=== PATIENT | male | born 1930 | race Caucasian/White ===

== ENCOUNTER 2016-09-21 16:45 | Emergency (ER) | payer MEDICARE, OTHER ==
[~2016-09-21] VITALS: Ht 175.3 cm; Wt 79.5 kg
[2016-09-21 16:57] VITALS: BP 131/65; PULSE 67; RESP 15; O2SAT 99
[2016-09-21] MEDS ORDERED: ASPI81TA3 PO (17:05)
[2016-09-21] MEDS ORDERED: TAMS0.4C29 PO (17:05)
[2016-09-21] MEDS ORDERED: ASCO500C6 PO (17:05)
[2016-09-21] MEDS ORDERED: NITR0.4T SUBMUCO102 (17:05)
[2016-09-21] MEDS ORDERED: METO-272 PO (17:05)
[2016-09-21] MEDS ORDERED: OXYB5TAB PO (17:05)
[2016-09-21] MEDS ORDERED: LISI2.5T PO (17:05)
[2016-09-21] MEDS ORDERED: ATOR80TA77 PEG (17:05)
[2016-09-21] MEDS ORDERED: FINA5TAB9 PO (17:05)
[2016-09-21 17:16] LABS: BASOPHILS % (AUTO) 0.1 % (0-3); MONOCYTES % (AUTO) 10.7 % (4-12); Mean Corpuscular Hemoglobin 34.4 pg (27.0-35.0); Mean Corpuscular Volume 102.1 fL (81-100); NEUTROPHILS % (AUTO) 64.5 % (40-74); Platelet Count 156 bil/L (150-400)
--- NOTE | 2016-09-21 17:30 | ED.REPORT ---
HPI-Abd Pain M 40 and Over Date of Service Sep 21, 2016 ED Provider: Shyam Casey MD Pt is an 86 y/o male presenting to the ED c/o rectal bleeding onset tonight. The patient experienced acute onset of large amount of rectal bleeding this evening after a BM. There was no blood in the stool. A few hours later he soaked through the back of his pants with red blood. There is no currently active bleeding. The patient had a colonoscopy 5 years ago that was reportedly normal. Pt denies abdominal pain, vomiting, rectal pain, fever, chills, dizziness, lightheadedness, chest pain, SOB. He has no history of GI bleeding, is not anticoagulated and lives by himself. He takes 1 baby ASA each day. Nursing Notes Stated Complaint: BLEEDING FROM THE RECTUM Chief Complaint: Male Abdominal Pain Nursing Notes Reviewed: Yes Allergies: Coded Allergies: No Known Allergies (Unverified , 09/21/16) Scheduled Ascorbic Acid (Vitamin C) 500 Mg Capsule.er 500 MG PO DAILY Aspirin Chew (Aspirin Chew) 81 Mg Chew 81 MG PO DAILY Atorvastatin Calcium (Atorvastatin Calcium) 80 Mg Tablet 80 NG PEG DAILY Finasteride (Finasteride) 5 Mg Tablet 5 MG PO DAILY Lisinopril (Lisinopril) 2.5 Mg Tablet 2.5 MG PO DAILY Metoprolol Succinate ER (Metoprolol Succinate ER) 50 Mg Tab.er.24h 50 MG PO BID Nitroglycerin SL (Nitrostat) 0.4 Mg Tab.subl 1 TAB [id number] prn Oxybutynin Chloride ER (Oxybutynin Chloride ER) 5 Mg Tab.er.24 5 MG PO DAILY Tamsulosin ER (Tamsulosin ER) 0.4 Mg Cap.er.24h 0.4 MG PO DAILY General Time Seen by MD: 16:59 Chief Complaint Other (rectal bleeding) Hx Obtained From: Patient Arrived By: Walk-in Sudden in Onset?: Yes Sudden in Onset?: No Onset Occurred: 1 - 4 hours ago Symptom Duration: Intermittent Progression since Onset: Resolved Severity: Current: No pain currently Severity: Maximum: No pain Similar Sx Previous: No Past Medical History Past Medical History SC in 2000 Past Surgical History Colonoscopy Smoking History Unknown if Ever Smoker Ambulatory Status Independent Review of Systems Constitutional: Denies: Chills, Fever Respiratory: Denies: Non-productive cough, Shortness of breath Cardiovascular: Denies: Chest pain, Dyspnea on exertion GI: Reports: Hematochezia, Denies: Abdominal pain, Bloody/tarry stool, Diarrhea, Hematemesis, Melena, Nausea, Vomiting Complete sys rev & neg: except as marked. Neurologic: Denies: Dizziness, Lightheaded, Weakness Physical Exam Initial Vital Signs Vital Signs (First) Date Time Temp Pulse Resp B/P Pulse Ox O2 Delivery O2 Flow Rate FiO2 09/21/16 16:57 36.6 67 15 131/65 99 09/21/16 18:22 Room Air Initial VS: Reviewed, Vital signs normal Head / Eyes: Atraumatic, Normocephalic, PERRL ENT: Mucous membranes moist, Conjunctiva normal, No scleral icterus Neck: Supple, Full range of motion Extremities: Vascular intact, Neuro intact, No swelling Skin: Warm, Dry, No cyanosis Neurologic: Alert, Oriented, Nonfocal Psychiatric: Mood/affect normal, Behavior normal, Normal thought content General/Constitutional: Awake, Alert, No acute distress, Well appearing, Cooperative, Not toxic appearing Respiratory / Chest: Breath sounds NL, Breath sounds = bilat, No respiratory distress, No rales, No rhonchi, No wheezing Cardiovascular: Heart rate NL, Regular rhythm, Heart sounds NL, No gallop, No murmurs, No rubs, Cap refill not delayed, Peripheral circulation NL Abdomen: Atraumatic, Soft, Non-tender, No guarding, No rebound, No distention, No palpable mass Back: Full range of motion, Painless range of motion Rectum / Perineum: Atraumatic, No discharge, No fecal impaction, No fissures, No hemorrhoids, No lesions, No mass Brown stool with small blood streaks Small amount of blood Interpretation & Diagnostics Lab Results Interpretation Result Diagram: 09/21/16 1706 09/21/16 1706 Test 09/21/16 17:06 White Blood Count 7.7th/mm3 (3.8-10.1) Red Blood Count 4.30mil/mm3 (4.40-5.80) Hemoglobin 14.8g/dL (13.8-17.2) Hematocrit 43.9% (41.0-50.0) Mean Corpuscular Volume 102.1fL (81-100) Mean Corpuscular Hemoglobin 34.4pg (27.0-35.0) Mean Corpuscular Hemoglobin Concent 33.7% (32.0-37.0) Red Cell Distribution Width 12.8% (12.3-15.4) Platelet Count 156bil/L (150-400) Neutrophils (%) (Auto) 64.5% (40-74) Lymphocytes (%) (Auto) 22.3% (14-46) Monocytes (%) (Auto) 10.7% (4-12) Eosinophils (%) (Auto) 2.0% (0-5) Basophils (%) (Auto) 0.1% (0-3) Prothrombin Time 10.5sec (8.1-12.5) Prothromb Time International Ratio 0.98ratio Sodium Level 142mEq/L (134-144) Potassium Level 4.4mEq/L (3.5-5.2) Chloride Level 105mEq/L (97-108) Carbon Dioxide Level 24mmol/L (18-29) Blood Urea Nitrogen 14mg/dL (8-27) Creatinine 0.92mg/dL (0.76-1.27) Estimat Glomerular Filtration Rate 83mL/min (>59) Glucose Level 114mg/dL (60-99) Calcium Level 9.9mg/dL (8.5-10.1) Total Bilirubin 0.5mg/dL (0.0-1.2) Aspartate Amino Transf (AST/SGOT) 24U/L (0-50) Alanine Aminotransferase (ALT/SGPT) 20U/L (0-44) Alkaline Phosphatase 95U/L (25-160) Total Protein 7.5g/dL (6.4-8.4) Albumin 4.2g/dL (3.4-5.0) Hold Azar Top Tube Received (Received) Re-Eval/Medical Decision Med Decision/Clinical Course 86-year-old male with history of CAD on aspirin and not on blood thinners presenting with rectal bleeding earlier today. His vital signs are stable. His hemoglobin is stable at 14. His stool is guaiac positive though it is brown with small flecks of red blood. Discussed with GI without located discharge home. Patient had a colonoscopy last 5 years ago. Discussed with patient and he agrees with plan to be discharged home with follow-up with primary doctor and GI for outpatient colonoscopy. Return precautions if any new or worsening bleeding, dizziness, lightheadedness, weakness, any other new or worsening symptoms. He feels safe to go home. Time of Eval: 17:51 Re-Evaluation/Progress Note: Pt rechecked. Informed pt of plan for treatment. Pt understands and agrees with plan for treatment. F/U instructions and RTER warnings given. All questions addressed. 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 Agrees with plan for d/c and outpatient f/u. Counseled Regarding: Diagnosis, Lab results, Need for follow-up, When/why to return to ED Discharge & Departure Primary Impression: Rectal bleeding Disposition: Home Vital Signs - All Vital Signs Date Time Temp Pulse Resp B/P Pulse Ox O2 Delivery O2 Flow Rate FiO2 09/21/16 18:22 36.2 78 20 114/66 99 Room Air 09/21/16 16:57 36.6 67 15 131/65 99 )( All Prior VS Reviewed: Yes Condition: Stable Patient Instructions: Gastrointestinal Bleeding (ED), Rectal Bleeding (ED) Additional Instructions: Labs today were reassuring. There was no sign of anemia. The GI doctor thinks you can go home and follow up with your primary and with them. I recommend you follow-up with your primary care doctor within 2 days. A consult with GI may be considered at that time. A referral number has been provided if your doctor would like to set up an appointment. Return to the emergency department for any recurrent bleeding, abdominal pain, dizziness, lightheadedness, nausea and vomiting, or for other concerning symptoms. Referrals: Haroon Hernandez MD (PCP) Juan Mcleod MD Attestation Portions of this note were transcribed by Montrell Fischer. I, Dr. Casey personally performed the history, physical exam and medical decision-making; I reviewed and confirmed the accuracy of the information in the transcribed note. Signed by Janet Rey, 09/21/16 - [id number] copies to: Haroon Hernandez MD; Juan Mcleod MD, Ben M MD Sep 21, 2016 17:30 MONTRELL FISCHER Sep 21, 2016 17:38
[2016-09-21 17:31] LABS: INR 0.98 ratio
[2016-09-21 18:22] VITALS: BP 114/66; PULSE 78; RESP 20; O2SAT 99
== END 2016-09-21 18:22 | disposition home or self-care (01) ==
LOC: SED 16:45
DX: K62.5 Hemorrhage of anus and rectum (principal); I25.2 Old myocardial infarction; Z79.82 Long term (current) use of aspirin

== ENCOUNTER 2016-10-22 07:13 | Day surgery (SDC) | payer MEDICARE, OTHER ==
[~2016-10-22] VITALS: Ht 175.3 cm; Wt 75.0 kg
[~2016-10-22 07:13] MED LIST: ASCO500C6 PO; ASPI-973 PO; ATOR80TA PO; FINA5TAB9 PO; LISI2.5T PO; METO-272 PO; TAMS0.4C98 PO
[2016-10-22 07:36] VITALS: BP 135/80; PULSE 60; RESP 16; O2SAT 98
[2016-10-22] MEDS ORDERED: 0.9% Sodium Chloride 1,000 ML IV PRN (07:51)
[2016-10-22] MEDS ORDERED: fentaNYL-PF 50 mCg/mL 2 mL Inj IVPUSH PRN (07:55)
[2016-10-22] MEDS ORDERED: Sodium Chloride LOK Flush 10 mL Syringe IV PRN (07:55)
--- NOTE | 2016-10-22 08:26 | PCM.ENDCOL ---
Colonoscopy Date of Service: Oct 22, 2016 Physician Juan Mcleod MD Pre Procedure Diagnosis: Blood in the stools Post Procedure Dx & Findings: Hemorrhoids diverticuli Procedure Colonoscopy PROCEDURE IN DETAIL: Prep adequate Withdrawal time 14 minutes After unremarkable rectal examination the Olympus video colonoscope was inserted patient's anal canal and was advanced to cecum. Landmarks were identified including the ileocecal valve and appendiceal orifice. Scope further advanced the terminal ileum. Advanced 10 cm. Visualized terminal ileum showed normal villous structures without any ulcer mass or erosion. Scope was withdrawn systematically. Visualized colonic mucosa showed healthy shiny mucosa with normal healthy-appearing vasculature. Throughout the entire colon, diverticulosis noted. But mostly in the sigmoid and the descending colon. In the rectum retroflexion was done which showed hemorrhoids. Anal canal was inspected carefully on the way out and hemorrhoids noted. Impression Hernandez diverticulosis Hemorrhoids Recommendation Diverticular diet Presedation Assessment Risks and Benefits Informed consent was obtained from the patient after all risks and benefits including but not limited to drug reaction, infection, pain, bleeding, perforation, as well as alternatives were discussed. Patient monitoring Continuous pulse oximetry, cardiac monitoring, blood pressure monitoring, IV access, and oxygen at 2L per nasal cannula. Periprocedural Fentanyl: Fentanyl 75mcg Incrementally Midazolam: Midazolam 3mg Incrementally Complications There were no periprocedural complications identified. Post Procedure Plan Post Procedure Recommendations 1. Restrict activities today. 2. Resume normal activities in the morning. 3. Resume medications. 4. Patient informed of normal post procedure side effects as bloating, drowsiness, blood streaking in the stool. 5. average risk CRCS. If colon polyps come back as: -Hyperplastic- can repeat colonoscopy in 10 years -Tubular adenoma- repeat colonoscopy in 5 years -Tubulovillous/villous adenoma- repeat colonoscopy in 3 years -If any dysplasia- return to clinic as soon as possible 6. Please don't hesitate to call me with any questions. Juan Mcleod MD Oct 22, 2016 08:26
[2016-10-22 08:29] VITALS: BP 106/68; PULSE 57; RESP 14; O2SAT 95
[2016-10-22 08:42] VITALS: BP 97/58; PULSE 60; RESP 16; O2SAT 96
[2016-10-22 08:52] VITALS: BP 123/61; PULSE 57; RESP 16; O2SAT 97
== END 2016-10-22 23:59 | disposition home or self-care (01) ==
LOC: END 07:13
PROVIDERS: ATTEND Internal Medicine
DX: K57.30 Diverticulosis of large intestine without perforation or abscess without bleeding (principal); K64.8 Other hemorrhoids; K92.1 Melena; I10 Essential (primary) hypertension; Z79.82 Long term (current) use of aspirin; Z79.899 Other long term (current) drug therapy
CPT/HCPCS: 45378; 99153; G0500; J2250; J3010; J7030